=== PATIENT | female | born 1975 | race Caucasian/White ===

== ENCOUNTER → 2016-10-01 | Outpatient (CLI) | payer BC | END | disposition home or self-care (01) | LOC: MAMMO 10:35 | PROVIDERS: ATTEND Family Medicine | DX: Z12.31 Encounter for screening mammogram for malignant neoplasm of breast (principal) | CPT/HCPCS: G0202 ==

== ENCOUNTER 2022-12-05 14:00 | Emergency (ER) | payer BC, OTHER ==
[~2022-12-05] VITALS: Ht 165.1 cm; Wt 77.0 kg
[2022-12-05 14:50] LABS: BASOPHILS % 0.2 % (0.0-2.0); EOSINOPHILS % 0.1 % (0.0-5.0); HEMATOCRIT. 32.6 % (36.0-48.0); HEMOGLOBIN. 10.8 g/dL (12.0-16.0); LYMPHOCYTES % 10.6 % (20.0-50.0); MEAN CORPUSCULAR HEMOGLOBIN 29.8 pg (28.0-32.0); MEAN CORPUSCULAR VOLUME 89.8 fL (81.0-99.0); MEAN PLATELET VOLUME 8.2 fl (7.4-10.4); MONOCYTES % 5.6 % (2.0-8.0); NEUTROPHILS % 83.5 % (40.0-76.0); PLATELET 256 x1000/uL (130-400); RED BLOOD CELL COUNT 3.63 mill/uL (4.2-5.4); RED CELL DISTRIBUTION WIDTH 16.5 % (11.6-14.6)
[2022-12-05 14:55] LABS: CHLORIDE 109 mEq/L (98-107)
[2022-12-05 15:02] LABS: ETHANOL BLOOD < 10 mg/dL
[2022-12-05 15:04] LABS: CLARITY URINE CLOUDY (CLEAR); COLOR URINE ORANGE (YELLOW); KETONES URINE NEGATIVE (NEGATIVE); LEUKOCYTE ESTERASE URINE 1+ (NEGATIVE); NITRITE URINE NEGATIVE (NEGATIVE); OCCULT BLOOD URINE 3+ (NEGATIVE); PROTEIN URINE 1+ (NEGATIVE); SPECIFIC GRAVITY URINE 1.011 (1.005-1.030); UROBILINOGEN URINE 0.2 E.U./dL (0.2-1.0)
[2022-12-05 15:20] LABS: *AMPHETAMINES SCREEN URINE NEGATIVE (NEGATIVE); *BARBITURATES SCREEN URINE NEGATIVE (NEGATIVE); *BENZODIAZEPINES SCREEN URINE NEGATIVE (NEGATIVE); *COCAINE SCREEN URINE NEGATIVE (NEGATIVE); METHADONE URINE SCREEN NEGATIVE (NEGATIVE); OPIATES URINE SCREEN NEGATIVE (NEGATIVE); PHENCYCLIDINE URINE SCREEN NEGATIVE (NEGATIVE)
[2022-12-05 15:23] LABS: CANNABINOID URINE SCREEN PRESUMTIVE POSITIVE (NEGATIVE)
[2022-12-05] MEDS: OLANZAPINE 5MG TABLET PO SCH ×2 (21:00→21:22)
[2022-12-06] MEDS: OLANZAPINE 5MG TABLET PO SCH (00:53)
[2022-12-06 08:39] VITALS: BP 132/70
== END 2022-12-06 08:59 | disposition home or self-care (01) ==
LOC: ER 15:12
DX: F32.A Depression, unspecified (principal); R45.851 Suicidal ideations; Z20.822 Contact with and (suspected) exposure to COVID-19
CPT/HCPCS: 36415; 80053; 80305; 80320; 81003; 81025; 85025; 87426; 99285; C9803; G0480

== ENCOUNTER → 2023-02-13 | Emergency (ER) | payer OTHER ==
[~2023-02-13] VITALS: Ht 162.6 cm; Wt 75.0 kg
[~2023-02-13] MED LIST: DIPHENHYDRAMINE 25MG CAPSULE PO NR; DIPHENHYDRAMINE 50MG CAPSULE PO ONE
[2023-02-13 14:14] VITALS: O2SAT 100
[2023-02-13 19:15] LABS: CHLORIDE 108 mEq/L (98-107); INDEX HEMOLYSI 1 (1-3); INDEX ICTERIC 1 (1-4); INDEX LIPEMIC 1 (1-3); POTASSIUM 3.6 mEq/L (3.5-5.1); SODIUM 138 mEq/L (136-145)
[2023-02-13 19:27] LABS: ACETAMINOPHEN <2 ug/mL ug/mL (10-30); ALANINE AMINOTRANSFERASE 20 IU/L (13-61); ALBUMIN 3.7 g/dL (3.4-5.0); ASPARTATE AMINOTRANSFERASE 23 IU/L (15-37); BILIRUBIN TOTAL 0.4 mg/dL (0.1-1.0); CALCIUM 8.4 mg/dL (8.5-10.1); CARBON DIOXIDE 22 mEq/L (21-32); CREATININE 0.5 mg/dL (0.6-1.3); ETHANOL BLOOD < 10 mg/dL (-10); GLUCOSE 94 mg/dL (70-105); PROTEIN TOTAL 7.9 g/dL (6.0-8.3); UREA NITROGEN BLOOD 6 mg/dL (7-21)
[2023-02-13 20:07] LABS: HCG SCREEN NEGATIVE
[2023-02-13 20:55] LABS: BASOPHILS % 0.6 % (0.0-2.0); EOSINOPHILS % 0.3 % (0.0-5.0); HEMATOCRIT. 32.5 % (36.0-48.0); HEMOGLOBIN. 10.3 g/dL (12.0-16.0); LYMPHOCYTES % 28.7 % (20.0-50.0); MEAN CORPUSCULAR HEMOGLOBIN 29.2 pg (28.0-32.0); MEAN CORPUSCULAR HGB CONC 31.7 g/dL (31.0-37.0); MEAN PLATELET VOLUME 8.4 fl (7.4-10.4); MONOCYTES % 10.1 % (2.0-8.0); NEUTROPHILS % 60.3 % (40.0-76.0); PLATELET 249 x1000/uL (130-400); RED BLOOD CELL COUNT 3.54 mill/uL (4.2-5.4); RED CELL DISTRIBUTION WIDTH 18.3 % (11.6-14.6); WHITE BLOOD COUNT 4.6 x1000/uL (4.5-11.0)
[2023-02-14 01:38] LABS: *AMPHETAMINES SCREEN URINE NEGATIVE (NEGATIVE); *BARBITURATES SCREEN URINE NEGATIVE (NEGATIVE); *BENZODIAZEPINES SCREEN URINE NEGATIVE (NEGATIVE); *COCAINE SCREEN URINE NEGATIVE (NEGATIVE); CANNABINOID URINE SCREEN NEGATIVE (NEGATIVE); ECSTASY MDMA SCREEN URINE NEGATIVE (NEGATIVE); METHADONE URINE SCREEN NEGATIVE (NEGATIVE); OPIATES URINE SCREEN NEGATIVE (NEGATIVE); PHENCYCLIDINE URINE SCREEN NEGATIVE (NEGATIVE)
[2023-02-14 12:14] VITALS: BP 114/62; PULSE 61; RESP 16; TEMP 97.9
== END ==
LOC: ER 14:39
DX: F41.9 Anxiety disorder, unspecified (principal); G47.00 Insomnia, unspecified; R44.0 Auditory hallucinations; F43.9 Reaction to severe stress, unspecified; Z98.51 Tubal ligation status
CPT/HCPCS: 80053; 81025; 80307; 80329; 80320; 84703; 85025; 36415; 99285; Q0163; G0480